=== PATIENT | male | born 1995 | race African-American/Black ===

== ENCOUNTER 2023-01-26 07:43 | Emergency (ER) | payer OTHER, SELFPAY ==
--- NOTE | ~2023-01-26 | CT_ITS ---
EXAMINATION: CT ABDOMEN AND PELVIS WITHOUT CONTRAST CLINICAL INFORMATION: Back pain and dysuria. COMPARISON: None available. TECHNIQUE: Multidetector volumetric imaging was performed from the superior aspect of the liver through the pubic symphysis. Sagittal and coronal reformatted images were obtained on the technologist's workstation. 01/26/[address] examination was performed using dose optimization techniques as appropriate, variously including the following: *Automated exposure control *Adjustment of mA and/or kV according to patient size (this includes techniques or standardized protocols for targeted exams where dose is matched to indication/reason for exam; i.e. extremities or head) *Use of iterative reconstruction technique DLP: Right knee mGy-cm FINDINGS: LUNG BASES: The visualized lung bases are unremarkable. LIVER, GALLBLADDER, AND BILIARY TREE: Unremarkable. PANCREAS: Unremarkable. SPLEEN: Unremarkable. ADRENAL GLANDS: Unremarkable. KIDNEYS AND URETERS: The kidneys are normal in size, shape, and attenuation. No hydronephrosis, hydroureter, or calculi seen. No perinephric stranding. BLADDER: Unremarkable. GASTROINTESTINAL TRACT: The stomach, small bowel and appendix are unremarkable. The colon and rectum are unremarkable. ABDOMINAL WALL: No significant hernia is appreciated. LYMPH NODES: Normal. VASCULAR: Unremarkable. PELVIC VISCERA: Unremarkable. OSSEOUS STRUCTURES: Mild bilateral sacroiliac degenerative joint changes. CT/CT abdomen pelvis wo IV con IMPRESSION: 1. No acute intra-abdominal/pelvic abnormality to explain the patient's symptoms. No nephrolithiasis or hydroureteronephrosis. 2. Mild bilateral sacroiliac degenerative joint changes.
[2023-01-26 07:51] VITALS: BP 123/81; PULSE 100; RESP 19; TEMP 36.6; O2SAT 100; BMI 32.4
--- NOTE | 2023-01-26 07:55 | ED_ITS ---
HPI - Male Genitourinary General Chief complaint: Urogenital-Male Stated complaint: Kidney Stones Time Seen by Provider: 01/26/23 07:51 Source: patient Mode of arrival: ambulatory Limitations: other (intellectual disability) History of Present Illness HPI Narrative: Patient is a 27 year old male with a history of kidney stones presenting today with painful urination and back pain since Wednesday. Father and step-mother are present and given the majority of the history. Step-mother says that the back pain and dysuria started Wednesday and patient was evaluated in a home visit by a doctor. She states urinalysis was negative for infection and she was instructed to bring patient to the ED if pain worsened which it has. Denies fever, chills, nausea, vomiting, abd pain, cp, sob paresthesias, urinary/bowel inco ntinence/retention, weakness. Related Data Previous Rx's Medication Instructions Recorded ketorolac 10 mg tablet 10 mg PO TID PRN pain 5 days #15 01/26/23 tabs lidocaine 5 % topical patch 1 patch topical DAILY PRN pain #15 01/26/23 ea Allergies Allergy/AdvReac Type Severity Reaction Status Date / Time No Known Allergies Allergy Verified 01/26/23 07:50 Review of Systems Review of Systems: Constitutional : No Weight loss, No Fever, No Chills, No Fatigue, No Malaise ENT/Mouth : No sore throat, No Rhinorrhea Eyes: No Eye Pain, No Swelling, No Redness Cardiovascular : No Chest Pain, No SOB, No Dyspnea on Exertion, No Orthopnea, No Edema, No Palpitations Respiratory : No Cough, No Sputum, No Wheezing Gastrointestinal : No Nausea, No Vomiting, No Diarrhea, No Constipation, No abdominal Pain, No Hematochezia, No Melena Genitourinary : + Dysuria, No Urinary Frequency, No Hematuria, Musculoskeletal : No joint pain, No Myalgias, No Joint Swelling, + flank pain Skin : No Skin Lesions, No rash Neuro : No Weakness, No Numbness, No Dizziness, No Headache Psych : No Anxiety/Panic, No Depression All other systems reviewed and are negative Yes all other systems are reviewed and are negative [facility] Past Medical History Attestation statement: The following information was validated with the patient. Source: old records reviewed and nursing notes reviewed Social History Social History Alcohol intake: never Smoked in Last 30 Days: No Use of substances other than those prescribed or required for medical reasons: No Advance Directives: No Advance Directives Information Provided: Yes Physical Exam Vital Signs: Vital Signs: Last Vital Signs Temp 98.3 F 01/26/23 11:39 Pulse 81 01/26/23 11:39 Resp 18 01/26/23 11:39 BP 125/75 01/26/23 11:39 Pulse Ox 100 01/26/23 11:39 O2 Del Method Room Air 01/26/23 11:39 BMI result Body Mass Index 32.4 vss Appearance: Alert.? Oriented X3.? No acute distress.? Head: Normocephalic, atraumatic, no step-offs or deformities Eyes: Pupils equal, round and reactive to light.? Neck: Normal inspection.? Neck supple.? CVS: Normal heart rate and rhythm.? Pulses normal.? Respiratory: No respiratory distress.? Breath sounds normal.? Abdomen: Soft and nontender.? Skin: Skin warm and dry.? Normal skin color.? Normal skin turgor.? Extremities: No lower extremity edema.? No calf ttp. 5/5 strength to bilateral upper and lower extremities Back: +flank pain b/l & lumbar paraspinous muscle spasms b/l, No midline tenderness, no C-spine tenderness, full range of motion Neuro: Oriented X 3.? No motor deficit.? No sensory deficit. CN 2-12 intact Course Reevaluation(s) Reevaluation #1: CBC with no acute findings. Chemistry with no electrolyte abnormalities requiring intervention. UA clean no leukocytes or nitrates. No infection. No blood noted unlikely kidney stone. CT abdomen pelvis with no acute intra- abdominal/pelvic abnormalities to explain patient's symptoms, mild bilateral sacroiliac degenerative joint disease, this could be contributing to patient's back pain. Dysuria likely secondary to cystitis. No signs of pyelonephritis, obstructive uropathy, kidney stone. Plan Toradol, fluids, Lidoderm patch patient to be discharged home with Toradol and Lidoderm patch. I suspect this is musculoskeletal in nature. Educated patient on diagnosis and treatment plan, answered all question, patient verbalizes understanding. At this time patient will be discharged home, advised to return with new or worsening symptoms. Educated on worrisome signs and symptoms and when to return. At this time I feel comfortable discharge home. Time: 10:23 Reevaluation #2: patient feeling better @ time of dc Medications Administered Discontinued Medications Generic Name Dose Route Start Last Admin Trade Name Keisha PRN Reason Stop Dose Admin Sodium Chloride 500 mls @ 500 mls/hr 01/26/23 10:30 01/26/23 10:55 Ns IV 01/26/23 11:29 Infused .Q1H RAMIRO Infusion Ketorolac Tromethamine 30 mg 01/26/23 10:18 01/26/23 10:25 Ketorolac Tromethamine 15 Mg/Ml Vial IVPUSH 01/26/23 10:19 30 mg ONCE ONE Administration Lidocaine 1 patch 01/26/23 10:13 01/26/23 10:26 Lidocaine 4 % Patch Adh..Patch TRANSDERMA 01/26/23 10:14 1 patch ONCE ONE Administration Protocol Medical Decision Making Medical Decision Making [facility] Narrative: 07 27 year old male presenting with intermittent right flank pain and dysuria starting Wednesday Exam significant for flank pain b/l & lumbar paraspinous muscle spasms b/l, This is likely nephrolithiasis vs lumbar spasm vs lumbar paraspinous spasm. Unlikely cystitis, pyelonephritis due to lack of fever, chills, or urinary symptoms. Unlikely muscle spasms, sprain or strain due to lack of trauma or injury. Unlikely cauda equina due to lack of trauma, incontinence or paresthesias no signs of epidural abscess or cord compression. Will rule out UTI and cystitis Plan: labs, urine, imaging Differential Diagnosis Differential Diagnoses: The differential diagnosis associated with the presentation includes This is likely nephrolithiasis lumbar spasm vs lumbar paraspinous spasm. . Unlikely cystitis, pyelonephritis due to lack of fever, chills, or urinary symptoms. Unlikely muscle spasms, sprain or strain due to lack of trauma or injury. Unlikely cauda equina due to lack of trauma, incontinence or pare sthesias no signs of epidural abscess or cord compression. Will rule out UTI and cystitis Admission/Observation Consideration of admission/observation: Escalation of care including admission/observation considered Not indicated Lab Data [facility] Lab Attestation statement: I reviewed the patient's lab results. CBC, CMP and urine all within normal limits. No infection, metabolic or electrolyte derangements noted. 01/26/23 09:20 01/26/23 09:20 Labs: Lab Results 01/26/23 01/26/2323 Range/Units 08:33 09:20 09:20 WBC 10.8 (4.8-10.8) X10*3/uL RBC 5.43 (4.60-5.80) X10*6/uL Hgb 15.7 (14.0-18.0) g/dl Hct 46.3 (42.0-52.0) % MCV 85.3 (80.0-98.0) fL MCH 28.9 (27.0-33.0) pg MCHC 33.9 (31.0-36.0) g/dl RDW 12.6 (11.0-16.0) % Plt Count 344 (160-400) X10*3/uL MPV 9.8 (9.4-12.4) fL Immature Gran % (Auto) 0.4 (0.0-0.4) % Neut % (Auto) 79.9 H (45-73) % Lymph % (Auto) 11.6 L (20-40) % [place] % (Auto) 6.7 (2-11) % Eos % (Auto) 0.9 (0-4) % Baso % (Auto) 0.5 (0-2) % Lymph # (Auto) 1.3 (1.2-4.9) X10*3/uL [place] # (Auto) 0.7 (0.1-1.2) X10*3/uL Eos # (Auto) 0.1 (0.0-0.4) X10*3/uL Baso # (Auto) 0.1 (0.0-0.2) X10*3/uL Abs Immat Gran (auto) 0.04 H (0.00-0.03) X10*3/uL Absolute Neuts (auto) 8.6 H (2.0-8.3) x10*3/uL Absolute Nucleated RBC 0.000 (0.0-0.012) X10*3/uL Nucleated RBC % (auto) 0.0 (0.0-0.2) /100WBC Sodium 140 (135-145) mmol/L Potassium 4.0 (3.3-5.1) mmol/L Chloride 106 (96-108) mmol/L Carbon Dioxide 26 (22-29) mmol/L Anion Gap 12 (12-20) BUN 13 (9-16) mg/dL Creatinine 0.92 (0.5-1.4) mg/dL Estim Creat Clear Calc 113.8 Estimated GFR > 60 Random Glucose 119 H (60-115) mg/dL Calcium 10.0 (8.4-10.2) mg/dL Magnesium 2.3 (1.6-2.6) mg/dL Total Bilirubin 0.5 (0.0-1.0) mg/dL AST 25 (5-37) U/L ALT 40 (0-40) U/L Alkaline Phosphatase 100 (39-117) U/L Total Protein 7.8 (6.5-8.0) g/dL Albumin 4.5 (3.5-5.0) g/dL Urine Color Yellow Urine Appearance Clear Urine pH 6.0 (5.0-9.0) Ur Specific [place] 1.015 (1.005-1.025) Urine Protein Negative (Neg-Trace) mg/dL Urine Glucose (UA) Negative (Negative) mg/dL Urine Ketones Negative (Negative) mg/dL Urine Blood Negative (Negative) Urine Nitrite Negative (Negative) Ur Leukocyte Esterase Negative (Negative) Independent Interpretation I performed an independent interpretation of an: CT Scan (CT/CT abdomen pelvis wo IV con IMPRESSION: 1. No acute intra-abdominal/pelvic abnormality to explain the patient's symptoms. No nephrolithiasis or hydroureteronephrosis. 2. Mild bilateral sacroiliac degenerative joint changes. ) Interpretation: Negative for stone or hydronephrosis. Radiology Impression Discussion of test interpretation with radiology: I have reviewed the radiologist's reading. Radiologist Impression: CT/CT abdomen pelvis wo IV con IMPRESSION: 1.? No acute intra-abdominal/pelvic abnormality to explain the patient's symptoms. No nephrolithiasis or hydroureteronephrosis. 2.? Mild bilateral sacroiliac degenerative joint changes. Prescription Management I considered prescription management with: Pain Medication Toradol and lidoderm patch. Core Measures AMI core measures followed: Yes Measure exclusions: not indicated Critical Care Time Critical Care Time Critical Care Time: No Discharge Plan Discharge Clinical Impression: Lower back pain, Cystitis Patient Disposition: Home, Self-Care Instructions: Acute Low Back Pain (ED) Additional Instructions: Toradol has been sent to your pharmacy, you tolerated this well in the department. Please take this as prescribed do not take this with ibuprofen, or other NSAIDs, do not mix this with alcohol. Side effects of this medication including increased risk for bleeding and possible kidney injury. Take your medications as prescribed. If you were prescribed antibiotics today, it is important that you take your medication to their entirety, do not skip any doses, do not finish them early. Follow-up with your primary care provider this week. Return to the emergency department with new or worsening symptoms. Such as fevers, chills, chest pain, shortness of breath, nausea, vomiting, dizziness, headache, vision changes, lethargy In case of emergency call 911 CT/CT abdomen pelvis wo IV con IMPRESSION: 1.? No acute intra-abdominal/pelvic abnormality to explain the patient's symptoms. No nephrolithiasis or hydroureteronephrosis. 2.? Mild bilateral sacroiliac degenerative joint changes. ? Prescriptions: New ketorolac 10 mg tablet 10 mg PO TID PRN (Reason: pain) 5 Days Qty: 15 0RF lidocaine 5 % adhesive patch,medicated 1 patch topical DAILY PRN (Reason: pain) Qty: 15 0RF Rx Instructions: leave on most painful area for up to 12 hrs Referrals: Pan Rivero MD [Primary Care Provider] - 2 days Stand Alone Forms: Work/School Release
--- NOTE | 2023-01-26 08:14 | PC.NURSE ---
respirations even and unlabored. pt reports a lot of pain in his right flank and that it hurts to urinate. family at bedside reporting pain has been constant since 01/23/2023. right flank tender to touch. denies n/v and chest pain.
[2023-01-26 08:46] LABS: Appearance Urine Clear; Color Urine Yellow; Glucose Urine UA Negative (Negative); Leukocyte Esterase Urine Negative (Negative); Nitrite Urine Negative (Negative); Specific Gravity - Urine 1.015 (1.005-1.025); Urine Blood Negative (Negative); Urine Ketones Negative (Negative); Urine Protein Negative (Neg-Trace)
[2023-01-26 09:11] VITALS: BP 131/73; PULSE 88; RESP 20; TEMP 36.9; O2SAT 99
[2023-01-26 09:24] LABS: MANUAL DIFF FLAG NO
[2023-01-26 09:25] LABS: Basophils Absolute Auto 0.1 X10*3/uL (0.0-0.2); Basophils Percent Auto 0.5 % (0-2); Eosinophils Absolute Auto 0.1 X10*3/uL (0.0-0.4); Eosinophils Percent Auto 0.9 % (0-4); Hematocrit 46.3 % (42.0-52.0); Hemoglobin 15.7 g/dl (14.0-18.0); Imm Gran Abs Auto 0.04 X10*3/uL (0.00-0.03); Imm Gran Pct Auto 0.4 % (0.0-0.4); Lymphocytes Absolute Auto 1.3 X10*3/uL (1.2-4.9); Lymphocytes Percent Auto 11.6 % (20-40); Mean Corpuscular HGB Conc 33.9 g/dl (31.0-36.0); Mean Corpuscular Hemoglobin 28.9 pg (27.0-33.0); Mean Corpuscular Volume 85.3 fL (80.0-98.0); Mean Platelet Volume 9.8 fL (9.4-12.4); Monocytes Absolute Auto 0.7 X10*3/uL (0.1-1.2); Monocytes Percent Auto 6.7 % (2-11); Neutrophils Absolute Auto 8.6 x10*3/uL (2.0-8.3); Neutrophils Percent Auto 79.9 % (45-73); Platelet Count 344 X10*3/uL (160-400); Red Blood Count 5.43 X10*6/uL (4.60-5.80); Red Cell Distribution Width 12.6 % (11.0-16.0); White Blood Count 10.8 X10*3/uL (4.8-10.8)
[2023-01-26 09:49] LABS: Alanine Aminotransferase 40 U/L (0-40); Albumin Level 4.5 g/dL (3.5-5.0); Alkaline Phosphatase 100 U/L (39-117); Anion Gap 12 (12-20); Aspartate Amino Transferase 25 U/L (5-37); Bilirubin Total 0.5 mg/dL (0.0-1.0); Blood Urea Nitrogen 13 mg/dL (9-16); Carbon Dioxide 26 mmol/L (22-29); Chloride 106 mmol/L (96-108); Creatinine Clr Calc Pharmacy 113.8; Estimated Glomerular Filt Rate > 60; Glucose Random 119 mg/dL (60-115); Magnesium 2.3 mg/dL (1.6-2.6); Sodium 140 mmol/L (135-145); Total Protein 7.8 g/dL (6.5-8.0)
[2023-01-26] MEDS: Ketorolac Tromethamine 15 MG/ML VIAL 30 MG IVPUSH (10:25)
[2023-01-26] MEDS: Lidocaine 4 % Patch ADH..PATCH 1 PATCH TRANSDERMA (10:26)
[2023-01-26] MEDS: 0.9 % Sodium Chloride 500 ML IV (10:30)
[2023-01-26 11:39] VITALS: BP 125/75; PULSE 81; RESP 18; TEMP 36.8; O2SAT 100
== END 2023-01-26 12:07 | disposition home or self-care (01) ==
PROVIDERS: Physician Assistant; Emergency Provider Emergency Medicine; PCP Pediatrics
DX: N30.90 Cystitis, unspecified without hematuria (principal); M54.50 Low back pain, unspecified
CPT/HCPCS: 36415; 74176; 80053; 81003; 83735; 85025; 96374; 99284; J1885